=== PATIENT | female | born 1980 | race Caucasian/White ===

== ENCOUNTER 2017-03-21 12:24 | Inpatient (IN) | payer OTHER ==
[2017-03-21] MEDS ORDERED: VANCOMYCIN 1 GM (PMX) 250 ML IVPB (13:48)
[2017-03-21] MEDS: SODIUM CHLORIDE 0.9% 1L BAG IV* (13:48)
[2017-03-21 14:18] LABS: ADD MAN DIFF? NO
[2017-03-21 14:21] LABS: WHITE BLOOD COUNT 11.7 10^3/ul (4.8-10.8)
[2017-03-21 14:21] LABS: BASOPHILS % 0.3 % (0.0-2.0); EOSINOPHILS # 0.2 10^3/ul (0.0-0.5); EOSINOPHILS % 1.5 % (0.0-7.0); HEMATOCRIT 33.1 % (37.0-47.0); HEMOGLOBIN 10.6 g/dl (12.0-16.0); LYMPHOCYTES # 2.1 10^3/ul (0.8-2.9); LYMPHOCYTES % 17.8 % (15.0-51.0); MEAN CORPUSCULAR HEMOGLOBIN 28.5 pg (29.0-33.0); MONOCYTE # 0.6 10^3/ul (0.3-0.9); MONOCYTES % 5.5 % (0.0-11.0); NEUTROPHIL # 8.7 10^3/ul (1.6-7.5); NEUTROPHILS % 74.5 % (39.0-77.0); PLATELET COUNT 298 10^3/UL (140-415); RED BLOOD COUNT 3.72 10^6/ul (4.20-5.40); RED CELL DISTRIBUTION WIDTH 14.5 % (11.5-14.5)
[2017-03-21 14:37] LABS: INR 0.94; PROTIME 12.7 Sec (11.9-14.9)
[2017-03-21 14:38] LABS: LACTIC ACID 1.9 mmol/L (0.5-2.0)
[2017-03-21 14:39] LABS: ALANINE AMINOTRANSFERASE 29 IU/L (13-69); ALBUMIN 4.3 g/dl (3.3-4.9); ALBUMIN/GLOBULIN RATIO 1.07; ALKALINE PHOSPHATASE 112 IU/L (42-121); ANION GAP 14 (8-16); ASPARTATE AMINO TRANSFERASE 27 IU/L (15-46); BILIRUBIN,INDIRECT 0.3 mg/dl (0-1.1); BILIRUBIN,TOTAL 0.3 mg/dl (0.2-1.3); BLOOD UREA NITROGEN 13 mg/dl (7-20); CALCIUM 9.6 mg/dl (8.4-10.2); CARBON DIOXIDE 27 mmol/L (21-31); CHLORIDE 102 mmol/L (97-110); CREATININE 0.67 mg/dl (0.44-1.00); GLUCOSE 125 mg/dl (70-220); POTASSIUM 3.7 mmol/L (3.5-5.1); SODIUM 139 mmol/L (135-144); TOTAL PROTEIN 8.3 g/dl (6.1-8.1)
[2017-03-21] MEDS ORDERED: ACETAMINOPHEN 325 MG TAB PO ×2 (15:00→16:30)
[2017-03-21] MEDS: HYDROmorphONE 1 MG/ML SYG IV (15:47)
[2017-03-21] MEDS: ONDANSETRON 4 MG INJ IV (15:47)
[2017-03-21] MEDS: PIPER-TAZO 3.375 GM IV (PMX) 50 ML IVPB ×2 (15:47→23:11)
[2017-03-21] MEDS: SOD CHLORIDE 0.9% 1,000 ML IV (16:29)
[2017-03-21] MEDS ORDERED: VANCOMYCIN IV PER PHARMACY XX (16:30)
[2017-03-21] MEDS ORDERED: BISACODYL 10 MG SUPP PR (16:30)
[2017-03-21] MEDS ORDERED: NACL 0.9% 3 ML SYG IV (16:30)
[2017-03-21] MEDS ORDERED: ALPRAZOLAM 0.25 MG TAB PO (17:00)
[2017-03-21 17:10] LABS: LACTIC ACID 0.8 mmol/L (0.5-2.0)
[2017-03-21] MEDS: VANCOMYCIN 1 GM in SODIUM CHLORIDE 0.45 % 250 ML IVPB (18:13)
[2017-03-21 18:52] LABS: LACTIC ACID 1.1 mmol/L (0.5-2.0)
[2017-03-21] MEDS: FAMOTIDINE 20 MG TAB PO (20:43)
[2017-03-21] MEDS: HYDROCODONE/APAP (5/325) TAB PO (23:11)
[2017-03-22] MEDS ORDERED: VANCOMYCIN 500MG/NS (PMX) 100 ML IVPB
[2017-03-22] MEDS: VANCOMYCIN 500MG/NS (PMX) 100 ML IVPB ×3 (02:20→22:17)
[2017-03-22] MEDS: SOD CHLORIDE 0.9% 1,000 ML IV ×2 (05:27→20:06)
[2017-03-22] MEDS: PIPER-TAZO 3.375 GM IV (PMX) 50 ML IVPB ×3 (05:44→21:37)
[2017-03-22 06:23] LABS: ADD MAN DIFF? NO
[2017-03-22 06:34] LABS: BASOPHILS % 0.2 % (0.0-2.0); EOSINOPHILS # 0.3 10^3/ul (0.0-0.5); EOSINOPHILS % 2.2 % (0.0-7.0); HEMATOCRIT 25.6 % (37.0-47.0); HEMOGLOBIN 8.3 g/dl (12.0-16.0); LYMPHOCYTES # 2.3 10^3/ul (0.8-2.9); LYMPHOCYTES % 20.8 % (15.0-51.0); MEAN CORPUSCULAR HEMOGLOBIN 28.6 pg (29.0-33.0); MEAN CORPUSCULAR HGB CONC 32.4 g/dl (32.0-37.0); MEAN CORPUSCULAR VOLUME 88.3 fl (82.0-101.0); MEAN PLATELET VOLUME 11.5 fl (7.4-10.4); MONOCYTE # 0.8 10^3/ul (0.3-0.9); MONOCYTES % 7.2 % (0.0-11.0); NEUTROPHIL # 7.8 10^3/ul (1.6-7.5); NEUTROPHILS % 69.2 % (39.0-77.0); PLATELET COUNT 263 10^3/UL (140-415); RED CELL DISTRIBUTION WIDTH 14.5 % (11.5-14.5)
[2017-03-22 06:34] LABS: WHITE BLOOD COUNT 11.2 10^3/ul (4.8-10.8)
[2017-03-22 08:50] LABS: ALANINE AMINOTRANSFERASE 32 IU/L (13-69); ALBUMIN 3.1 g/dl (3.3-4.9); ALBUMIN/GLOBULIN RATIO 0.88; ALKALINE PHOSPHATASE 135 IU/L (42-121); ANION GAP 12 (8-16); ASPARTATE AMINO TRANSFERASE 28 IU/L (15-46); BILIRUBIN,INDIRECT 0.1 mg/dl (0-1.1); BILIRUBIN,TOTAL 0.1 mg/dl (0.2-1.3); BLOOD UREA NITROGEN 9 mg/dl (7-20); CALCIUM 8.7 mg/dl (8.4-10.2); CARBON DIOXIDE 27 mmol/L (21-31); CHLORIDE 106 mmol/L (97-110); CREATININE 0.83 mg/dl (0.44-1.00); GLUCOSE 112 mg/dl (70-220); MAGNESIUM 1.9 mg/dl (1.7-2.5); PHOSPHORUS 3.2 mg/dl (2.5-4.9); POTASSIUM 3.5 mmol/L (3.5-5.1); SODIUM 141 mmol/L (135-144); TOTAL PROTEIN 6.6 g/dl (6.1-8.1)
[2017-03-22] MEDS: FAMOTIDINE 20 MG TAB PO (09:00)
[2017-03-22] MEDS: ONDANSETRON 4 MG INJ IV ×2 (09:07→20:12)
[2017-03-22] MEDS: morphine 2 MG INJ IV ×2 (13:39→20:40)
[2017-03-22] MEDS ORDERED: morphine 2 MG INJ IV (14:30)
[2017-03-22] MEDS: FOLIC ACID 1 MG TAB PO (14:30)
[2017-03-22] MEDS: FAMOTIDINE 20 MG INJ IV ×2 (16:03→20:40)
[2017-03-22] MEDS ORDERED: DIPHENHYDRAMINE 50 MG INJ IV (17:30)
[2017-03-22] MEDS ORDERED: HYDROmorphONE (0.2 MG/ML) 10ML SYG IV ×3 (17:30)
[2017-03-22] MEDS ORDERED: METOCLOPRAMIDE 10 MG INJ IV (17:30)
[2017-03-22] MEDS ORDERED: OXYCODONE/ACETAMINOPHEN (5/325) TAB PO ×2 (17:30)
[2017-03-22] MEDS ORDERED: hydrALAzine 20 MG INJ IV (17:30)
[2017-03-22] MEDS ORDERED: LABETALOL HCL 20MG INJ IV (17:30)
[2017-03-22] MEDS ORDERED: MIDAZOLAM 1 MG/ML 2 ML INJ IV (17:30)
[2017-03-22] MEDS ORDERED: ONDANSETRON 4 MG INJ IV (17:30)
[2017-03-22] MEDS ORDERED: FENTAnyl 50 MCG/ML VIAL IV ×3 (17:30)
[2017-03-22] MEDS ORDERED: EPHEDrine SULFATE 50 MG/5 ML SYG IV (17:30)
[2017-03-22] MEDS ORDERED: MEPERIDINE 25 MG INJ IV (17:30)
[2017-03-22] MEDS ORDERED: MEPERIDINE 100 MG INJ (17:36)
[2017-03-22] MEDS ORDERED: LIDOCAINE 2% (SDV) 5 ML INJ (17:36)
[2017-03-22] MEDS ORDERED: PROPOFOL 20 ML (17:36)
[2017-03-22] MEDS ORDERED: ONDANSETRON 4 MG INJ (18:14)
[2017-03-22] MEDS ORDERED: METOCLOPRAMIDE 10 MG INJ (18:14)
[2017-03-22] MEDS: POLYSACCHARIDE IRON COMPLEX CAP PO (19:30)
[2017-03-22] MEDS: SOD CHLORIDE 0.9% 500 ML IV (19:30)
[2017-03-22 21:21] LABS: VANCOMYCIN,TROUGH 9.6 ug/ml (10.0-20.0)
[2017-03-22] MEDS: HYDROCODONE/APAP (5/325) TAB PO (21:37)
[2017-03-23] MEDS: SOD CHLORIDE 0.9% 1,000 ML IV ×5 (01:18→21:27)
[2017-03-23] MEDS: HYDROCODONE/APAP (5/325) TAB PO ×2 (03:59→16:44)
[2017-03-23] MEDS: PIPER-TAZO 3.375 GM IV (PMX) 50 ML IVPB ×3 (05:23→22:47)
[2017-03-23] MEDS: VANCOMYCIN 500MG/NS (PMX) 100 ML IVPB ×3 (06:14→21:27)
[2017-03-23 06:39] LABS: ADD MAN DIFF? NO
[2017-03-23 06:44] LABS: BASOPHILS % 0.2 % (0.0-2.0); EOSINOPHILS # 0.3 10^3/ul (0.0-0.5); EOSINOPHILS % 2.8 % (0.0-7.0); HEMATOCRIT 25.4 % (37.0-47.0); LYMPHOCYTES # 2.1 10^3/ul (0.8-2.9); LYMPHOCYTES % 20.4 % (15.0-51.0); MEAN CORPUSCULAR HEMOGLOBIN 28.2 pg (29.0-33.0); MEAN CORPUSCULAR HGB CONC 31.5 g/dl (32.0-37.0); MEAN CORPUSCULAR VOLUME 89.4 fl (82.0-101.0); MEAN PLATELET VOLUME 10.7 fl (7.4-10.4); MONOCYTE # 0.8 10^3/ul (0.3-0.9); MONOCYTES % 7.7 % (0.0-11.0); NEUTROPHIL # 7.2 10^3/ul (1.6-7.5); NEUTROPHILS % 68.5 % (39.0-77.0); PLATELET COUNT 251 10^3/UL (140-415); RED BLOOD COUNT 2.84 10^6/ul (4.20-5.40); RED CELL DISTRIBUTION WIDTH 14.3 % (11.5-14.5)
[2017-03-23 06:44] LABS: WHITE BLOOD COUNT 10.4 10^3/ul (4.8-10.8)
[2017-03-23 07:16] LABS: ALANINE AMINOTRANSFERASE 30 IU/L (13-69); ALBUMIN/GLOBULIN RATIO 0.96; ALKALINE PHOSPHATASE 121 IU/L (42-121); ANION GAP 10 (8-16); ASPARTATE AMINO TRANSFERASE 25 IU/L (15-46); BILIRUBIN,INDIRECT 0.2 mg/dl (0-1.1); BILIRUBIN,TOTAL 0.2 mg/dl (0.2-1.3); BLOOD UREA NITROGEN 9 mg/dl (7-20); CALCIUM 7.6 mg/dl (8.4-10.2); CARBON DIOXIDE 25 mmol/L (21-31); CHLORIDE 110 mmol/L (97-110); CREATININE 0.86 mg/dl (0.44-1.00); GLUCOSE 89 mg/dl (70-220); POTASSIUM 3.6 mmol/L (3.5-5.1); SODIUM 141 mmol/L (135-144); TOTAL PROTEIN 6.1 g/dl (6.1-8.1)
[2017-03-23] MEDS: CEPASTAT LOZENGE MT (08:40)
[2017-03-23] MEDS: FAMOTIDINE 20 MG INJ IV ×2 (09:35→21:29)
[2017-03-23] MEDS: CALCIUM/VITAMIN D (500/200) TAB PO ×2 (09:35→21:29)
[2017-03-23] MEDS: FOLIC ACID 1 MG TAB PO (09:35)
[2017-03-23] MEDS: MEGESTROL 40 MG TAB PO ×4 (11:48→21:29)
[2017-03-23] MEDS: SOD FERRIC GLUC COMPLX 125 MG in SOD CHLORIDE 0.9% 100 ML IVPB (11:48)
[2017-03-23] MEDS: ONDANSETRON 4 MG INJ IV (11:59)
[2017-03-23] MEDS: SOD CHLORIDE 0.9% 250 ML IV* (12:58)
[2017-03-23] MEDS ORDERED: LIDOCAINE 2% VISC 15 ML CUP PO (13:00)
[2017-03-23 16:43] LABS: IMMEDIATE SPIN CROSSMATCH 1 2
[2017-03-23] MEDS: DIPHENHYDRAMINE 50 MG INJ IV (16:44)
[2017-03-23] MEDS: MAGNESIUM HYDROXIDE 30ML CUP PO (17:19)
[2017-03-23] MEDS: FUROSEMIDE 20 MG INJ IV (20:00)
[2017-03-23] MEDS: SODIUM HYPOCHLORITE 0.125% 473 ML BTL IRR (21:29)
[2017-03-24] MEDS: HYDROCODONE/APAP (5/325) TAB PO ×2 (01:26→09:42)
[2017-03-24] MEDS: hydrOXYzine HCL 10 MG TAB PO (03:07)
[2017-03-24] MEDS: morphine 2 MG INJ IV (03:12)
[2017-03-24] MEDS: VANCOMYCIN 500MG/NS (PMX) 100 ML IVPB ×2 (05:16→14:52)
[2017-03-24 05:54] LABS: ADD MAN DIFF? NO
[2017-03-24 06:02] LABS: WHITE BLOOD COUNT 8.1 10^3/ul (4.8-10.8)
[2017-03-24 06:02] LABS: BASOPHILS % 0.4 % (0.0-2.0); EOSINOPHILS # 0.5 10^3/ul (0.0-0.5); HEMATOCRIT 33.9 % (37.0-47.0); HEMOGLOBIN 11.4 g/dl (12.0-16.0); LYMPHOCYTES # 2.6 10^3/ul (0.8-2.9); LYMPHOCYTES % 32.4 % (15.0-51.0); MEAN CORPUSCULAR HEMOGLOBIN 29.1 pg (29.0-33.0); MEAN CORPUSCULAR HGB CONC 33.6 g/dl (32.0-37.0); MEAN CORPUSCULAR VOLUME 86.5 fl (82.0-101.0); MEAN PLATELET VOLUME 10.9 fl (7.4-10.4); MONOCYTE # 0.7 10^3/ul (0.3-0.9); MONOCYTES % 8.2 % (0.0-11.0); NEUTROPHIL # 4.3 10^3/ul (1.6-7.5); NEUTROPHILS % 52.9 % (39.0-77.0); PLATELET COUNT 269 10^3/UL (140-415); RED BLOOD COUNT 3.92 10^6/ul (4.20-5.40)
[2017-03-24 06:17] LABS: ALANINE AMINOTRANSFERASE 35 IU/L (13-69); ALBUMIN 3.3 g/dl (3.3-4.9); ALBUMIN/GLOBULIN RATIO 0.94; ALKALINE PHOSPHATASE 175 IU/L (42-121); ANION GAP 11 (8-16); ASPARTATE AMINO TRANSFERASE 30 IU/L (15-46); BILIRUBIN,INDIRECT 0.8 mg/dl (0-1.1); BILIRUBIN,TOTAL 0.8 mg/dl (0.2-1.3); BLOOD UREA NITROGEN 6 mg/dl (7-20); CALCIUM 8.5 mg/dl (8.4-10.2); CARBON DIOXIDE 26 mmol/L (21-31); CHLORIDE 109 mmol/L (97-110); GLUCOSE 107 mg/dl (70-220); POTASSIUM 3.5 mmol/L (3.5-5.1); SODIUM 142 mmol/L (135-144); TOTAL PROTEIN 6.8 g/dl (6.1-8.1)
[2017-03-24] MEDS: PIPER-TAZO 3.375 GM IV (PMX) 50 ML IVPB ×2 (06:24→17:26)
[2017-03-24 06:25] LABS: MAGNESIUM 2.3 mg/dl (1.7-2.5)
[2017-03-24 06:40] LABS: FREE THYROXINE INDEX (Calc) 3.29 ug/ml (0.65-3.89); T3 UPTAKE 28.9 % (23.5-40.5); T4 (THYROXINE) 11.4 ug/dl (5.5-11.0)
[2017-03-24] MEDS: FAMOTIDINE 20 MG INJ IV (09:20)
[2017-03-24] MEDS: MEGESTROL 40 MG TAB PO ×2 (09:20→12:44)
[2017-03-24] MEDS: FOLIC ACID 1 MG TAB PO (09:20)
[2017-03-24] MEDS: CALCIUM/VITAMIN D (500/200) TAB PO (09:20)
[2017-03-24] MEDS: SODIUM HYPOCHLORITE 0.125% 473 ML BTL IRR (09:21)
[2017-03-24] MEDS: DOCUSATE SODIUM 100 MG CAP PO (09:42)
[2017-03-24] MEDS: MAGNESIUM HYDROXIDE 30ML CUP PO (09:43)
[2017-03-24] MEDS: SOD CHLORIDE 0.9% 1,000 ML IV (09:57)
[2017-03-24] MEDS: SOD FERRIC GLUC COMPLX 125 MG in SOD CHLORIDE 0.9% 100 ML IVPB (12:44)
[2017-03-24 22:23] LABS: OCCULT BLOOD STOOL NEGATIVE (NEGATIVE)
== END 2017-03-24 17:45 | disposition home health service (06) | DRG 863 ==
LOC: MS2 16:04 → E/R 12:24 → MS2 14:42
PROC: 0HCT0ZZ Extirpation of Matter from Right Breast, Open Approach (ICD-10-PCS; principal; 2017-03-22 12:00)
PROC: 0W9800Z Drainage of Chest Wall with Drainage Device, Open Approach (ICD-10-PCS; 2017-03-22 12:00)
PROC: 0H9T3ZX Drainage of Right Breast, Percutaneous Approach, Diagnostic (ICD-10-PCS; 2017-03-22 12:00)
PROC: 30233N1 Transfusion of Nonautologous Red Blood Cells into Peripheral Vein, Percutaneous Approach (ICD-10-PCS; 2017-03-22 17:34)
DX: T81.4XXA Infection following a procedure, initial encounter (principal); C50.911 Malignant neoplasm of unspecified site of right female breast; D62 Acute posthemorrhagic anemia; I10 Essential (primary) hypertension; B95.61 Methicillin susceptible Staphylococcus aureus infection as the cause of diseases classified elsewhere; D53.9 Nutritional anemia, unspecified; F41.9 Anxiety disorder, unspecified; N61.1 Abscess of the breast and nipple; R42 Dizziness and giddiness; Z17.0 Estrogen receptor positive status [ER+]; Z90.11 Acquired absence of right breast and nipple
CPT/HCPCS: 36415; 36430; 71010; 71250; 80053; 80202; 82270; 83605; 83735; 84100; 84436; 84479; 84703; 85025; 85610; 85730; 86850; 86900; 86901; 86920; 87040; 87070; 87075; 87081; 87102; 87116; 96365; 96375; 99285-25; J1940